=== PATIENT | male | born 1950 | race Caucasian/White ===

== ENCOUNTER 2018-09-29 00:51 | Emergency (ER) | payer OTHER, MEDICARE ==
[2018-09-29 01:04] VITALS: BP 154/84; PULSE 112; RESP 18; TEMP 98.8
--- NOTE | 2018-09-29 02:25 | XR ---
EXAM: XR Chest, 2 Views CLINICAL HISTORY: ITS.REASON XR Reason: Pain TECHNIQUE: Frontal and lateral views of the chest. COMPARISON: No relevant prior studies available. FINDINGS: Lungs: No consolidation or mass. Pleural space: No effusion. Heart: No cardiomegaly. Mediastinum: Unremarkable. Bones/joints: No acute findings. IMPRESSION: No acute cardiopulmonary process.
--- NOTE | 2018-09-29 02:26 | XR ---
EXAM: XR Left Shoulder Complete, 2 or More Views CLINICAL HISTORY: ITS.REASON XR Reason: Pain TECHNIQUE: Two or more views of the left shoulder. COMPARISON: No relevant prior studies available. FINDINGS: Bones/joints: No acute fracture. No dislocation. Moderate degenerative changes of the acromioclavicular and glenohumeral joints. Soft tissues: Unremarkable. IMPRESSION: No acute findings. Moderate osteoarthrosis.
--- NOTE | 2018-09-29 02:35 | CT ---
EXAM: CT Head Without Intravenous Contrast CLINICAL HISTORY: ITS.REASON CT Reason: Pain TECHNIQUE: Axial computed tomography images of the head/brain without intravenous contrast. CTDI is 45 mGy and DLP is 1055 mGy-cm. This CT exam was performed using one or more of the following dose reduction techniques: automated exposure control, adjustment of the mA and/or kV according to patient size, and/or use of iterative reconstruction technique. COMPARISON: No relevant prior studies available. FINDINGS: Brain: No hemorrhage, large hypodensity, or mass effect. Ventricles: No hydrocephalus. Mild cerebral volume loss. Bones/joints: Unremarkable. Soft tissues: Unremarkable. Sinuses: Unremarkable. Mastoid air cells: Clear. IMPRESSION: No acute hemorrhage, hydrocephalus, or mass effect. EXAM: CT Cervical Spine Without Intravenous Contrast CLINICAL HISTORY: ITS.REASON CT Reason: Pain TECHNIQUE: Axial computed tomography images of the cervical spine without intravenous contrast. CTDI is 13 mGy and DLP is 345 mGy-cm. This CT exam was performed using one or more of the following dose reduction techniques: automated exposure control, adjustment of the mA and/or kV according to patient size, and/or use of iterative reconstruction technique. COMPARISON: No relevant prior studies available. FINDINGS: Vertebrae: No acute fracture. Discs/spinal canal/neural foramina: Severe degenerative disc disease with large bridging anterior osteophytes from C4-C7. Mild spinal canal stenosis from C3-C7 secondary to degenerative changes. Soft tissues: Unremarkable. IMPRESSION: No acute fracture or subluxation.
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
== END 2018-09-29 03:00 | disposition home or self-care (01) ==
LOC: EC 00:51
DX: M25.512 Pain in left shoulder (principal); M25.60 Stiffness of unspecified joint, not elsewhere classified; Z87.891 Personal history of nicotine dependence; Z96.641 Presence of right artificial hip joint; V49.49XA Driver injured in collision with other motor vehicles in traffic accident, initial encounter; Y92.410 Unspecified street and highway as the place of occurrence of the external cause
CPT/HCPCS: 70450; 71046; 72125; 99284

== ENCOUNTER → 2018-10-28 | Outpatient (CLI) | payer MEDICARE, OTHER ==
--- NOTE | 2018-10-28 16:03 | US ---
EXAMINATION TYPE: US bladder DATE OF EXAM: 10/28/2018 COMPARISON: NONE CLINICAL HISTORY: R35.0 FREQ OF MICTURITION. Patient states it takes a while and a few times to empty bladder. Patient voided after initial scan. Patient unable to void second time. EXAM MEASUREMENTS: Post Void Residual Volume: 390.8 mL Color Doppler performed to assess ureteral jets. Bilateral Jets seen Normal Post Void Residual (less than 50ml): ABNORMAL IMPRESSION: Confirmation of abnormal post void residual was significant residual urine present in bl adder after voiding.
== END | disposition home or self-care (01) ==
LOC: RADUSWWP 15:25
PROVIDERS: ATTEND Family Medicine
DX: R39.198 Other difficulties with micturition (principal)
CPT/HCPCS: 76857

== ENCOUNTER 2020-05-23 12:52 | Inpatient (IN) | payer MEDICARE, OTHER ==
[2020-05-23] MEDS ORDERED: SODIUM CHLORIDE 0.9% 1,000 ML IV STA ×2 (12:59)
--- NOTE | 2020-05-23 13:02 | ED ---
Nausea/Vomiting/Diarrhea HPI - General Stated complaint: dehydration Time Seen by Provider: 05/23/20 12:52 Source: patient, EMS, RN notes reviewed Mode of arrival: EMS - History of Present Illness Initial comments: This is a 69-year-old male with history of chronic back problems who states he's had diarrhea for the last 2 weeks he was seen in his doctor's office today and found to be demonstrating evidence of dehydration. He was brought here by EMS he has been having lightheadedness when he tries get walk. He states he had decreased oral intake. No fevers chills nausea vomiting sweats his diarrhea he states he attributes that to his low back pains had similar problems before with the associated back pain and he is in the process of getting worked up for it. MD complaint: diarrhea - Related Data Allergies Allergy/AdvReac Type Severity Reaction Status Date / Time No Known Allergies Allergy Verified 05/23/20 13:02 Review of Systems ROS Statement: Those systems with pertinent positive or pertinent negative responses have been documented in the HPI. ROS Other: All systems not noted in ROS Statement are negative. Past Medical History Past Medical History: No Reported History History of Any Multi-Drug Resistant Organisms: None Reported Past Surgical History: Appendectomy, Orthopedic Surgery Additional Past Surgical History / Comment(s): right hip replacement Past Alcohol Use History: None Reported, Rare Past Drug Use History: None Reported General Exam - General Exam Comments Initial Comments: This is a well-developed well-nourished awake alert oriented 3 male General appearance: alert, in no apparent distress Head exam: Present: atraumatic, normocephalic, normal inspection Eye exam: Present: normal appearance, PERRL, EOMI. Absent: scleral icterus, conjunctival injection, periorbital swelling ENT exam: Present: mucous membranes dry Neck exam: Present: normal inspection, full ROM, other (No stridor JVD or bruits). Absent: tenderness, meningismus, lymphadenopathy Respiratory exam: Present: normal lung sounds bilaterally. Absent: respiratory distress, wheezes, rales, rhonchi, stridor Cardiovascular Exam: Present: regular rate, normal rhythm, normal heart sounds. Absent: systolic murmur, diastolic murmur, rubs, gallop, clicks GI/Abdominal exam: Present: soft, normal bowel sounds. Absent: distended, tenderness, guarding, rebound, rigid, bruit, pulsatile mass Extremities exam: Present: normal inspection, full ROM, normal capillary refill. Absent: tenderness, pedal edema, joint swelling, calf tenderness Back exam: Present: normal inspection Neurological exam: Present: alert, oriented X3, CN II-XII intact Psychiatric exam: Present: normal affect, normal mood Skin exam: Present: warm, dry, intact, normal color. Absent: rash Course Vital Signs 05/23/20 12:58 Temperature 101.7 F H Pulse Rate 102 H Respiratory 18 Rate Blood Pressure 127/79 O2 Sat by Pulse 98 Oximetry - Reevaluation(s) Reevaluation #1: 05/23/20 14:31 Patient later admitted he was having a cough for the past 2 weeks he also was found have a fever 101 upon arrival. Medical Decision Making - Medical Decision Making I did discuss findings with patient and he will be admitted for evaluation. GI will be consulted - Lab Data Result diagrams: 05/23/20 13:26 05/23/20 13:26 Lab Results 05/23/20 05/23/20 05/23/20 Range/Units 13:26 13:26 13:26 WBC 4.5 (3.8-10.6) k/uL RBC 5.29 (4.30-5.90) m/uL Hgb 17.0 (13.0-17.5) gm/dL Hct 49.0 (39.0-53.0) % MCV 92.6 (80.0-100.0) fL MCH 32.1 (25.0-35.0) pg MCHC 34.7 (31.0-37.0) g/dL RDW 12.9 (11.5-15.5) % Plt Count 168 (150-450) k/uL MPV 6.9 Neutrophils % 72 % Lymphocytes % 19 % Monocytes % 6 % Eosinophils % 0 % Basophils % 1 % Neutrophils # 3.3 (1.3-7.7) k/uL Lymphocytes # 0.9 L (1.0-4.8) k/uL Monocytes # 0.3 (0-1.0) k/uL Eosinophils # 0.0 (0-0.7) k/uL Basophils # 0.0 (0-0.2) k/uL Sodium 135 L (137-145) mmol/L Potassium 3.7 (3.5-5.1) mmol/L Chloride 99 (98-107) mmol/L Carbon Dioxide 26 (22-30) mmol/L Anion Gap 10 mmol/L BUN 23 H (9-20) mg/dL Creatinine 1.03 (0.66-1.25) mg/dL Est GFR (CKD-EPI)AfAm 85 (>60 ml/min/1.73 sqM) Est GFR (CKD-EPI)NonAf 74 (>60 ml/min/1.73 sqM) Glucose 114 H (74-99) mg/dL Plasma Lactic Acid Marlo 1.9 (0.7-2.0) mmol/L Calcium 8.5 (8.4-10.2) mg/dL Magnesium 1.7 (1.6-2.3) mg/dL Total Bilirubin 1.4 H (0.2-1.3) mg/dL AST 69 H (17-59) U/L ALT 43 (4-49) U/L Alkaline Phosphatase 57 (38-126) U/L Creatine Kinase 126 (55-170) U/L Total Protein 7.3 (6.3-8.2) g/dL Albumin 4.1 (3.5-5.0) g/dL Amylase 56 (30-110) U/L Lipase 230 (23-300) U/L - EKG Data -: EKG Interpreted by Me EKG shows normal: sinus rhythm EKG Comments: Sinus rhythm a 96 CT interval 132 QRS 88 QT since QTC 354/447 right word axis no acute ST-T wave changes - Radiology Data Radiology results: report reviewed (Imaging reviewed no acute findings.), image reviewed Disposition Clinical Impression: Diarrhea, Febrile illness, acute, Dehydration Disposition: ADMITTED IP TO THIS [facility] Condition: Fair Referrals: Shayan Beltrán DO [Primary Care Provider] - 1-2 days
[2020-05-23] MEDS ORDERED: ONDANSETRON 4 MG/2 ML VIAL IVP STA (13:28)
[2020-05-23 13:43] LABS: Basophils % (A) 1 %; Eosinophils % (A) 0 %; Lymphocytes # (A) 0.9 k/uL (1.0-4.8); Lymphocytes % (A) 19 %; MCH 32.1 pg (25.0-35.0); MCHC 34.7 g/dL (31.0-37.0); MCV 92.6 fL (80.0-100.0); Mean Platelet Volume 6.9; Monocytes # (A) 0.3 k/uL (0-1.0); Monocytes % (A) 6 %; Neutrophils # (A) 3.3 k/uL (1.3-7.7); Neutrophils % (A) 72 %; Platelet Count 168 k/uL (150-450); RBC 5.29 m/uL (4.30-5.90); RDW 12.9 % (11.5-15.5); WBC 4.5 k/uL (3.8-10.6)
[2020-05-23 13:48] LABS: Albumin 4.1 g/dL (3.5-5.0); Calcium 8.5 mg/dL (8.4-10.2); Magnesium 1.7 mg/dL (1.6-2.3); Total Bilirubin 1.4 mg/dL (0.2-1.3); Total Protein 7.3 g/dL (6.3-8.2)
[2020-05-23 14:40] LABS: Potassium 3.7 mmol/L (3.5-5.1)
--- NOTE | 2020-05-23 14:43 | XR ---
KUB HISTORY: Abdominal pain, cough and congestion Frontal KUB submitted on 2 images Bilateral hip arthroplasty change is present. Degenerative disc changes are present in the visualized spine, there are overlying artifacts. Metallic coils are present in the right hemiabdomen, there are surgical clips in the right upper quadrant. Lung bases are clear. No evident bowel obstruction or pn eumoperitoneum. Probable phleboliths within the pelvis. IMPRESSION: Nonspecific bowel gas pattern.
--- NOTE | 2020-05-23 14:44 | XR ---
EXAMINATION TYPE: XR chest 2V DATE OF EXAM: 05/23/2020 COMPARISON: Chest x-ray 09/29/2018 HISTORY: Fever and cough TECHNIQUE: Frontal and lateral views of the chest are obtained. FINDINGS: Patient is rotated. There is some pleural thickening along the left lateral chest margin si milar to prior exam. There is no pleural effusion or pneumothorax seen. The cardiac silhouette size is within normal limits. The osseous structures are remarkable for post left shoulder arthroplasty change, chronic clavicular joints show arthropathy. There are overlying leads. Thoracic spondylosis i s present.. IMPRESSION: No acute cardiopulmonary process.
[2020-05-23] MEDS ORDERED: NALOXONE 0.4 MG/ML 1 ML VIAL IV PRN (14:54)
[2020-05-23] MEDS: ACETAMINOPHEN TAB 325 MG TAB PO PRN (15:40)
[2020-05-23] MEDS ORDERED: CYCLOBENZAPRINE 10 MG TAB PO PRN (18:45)
--- NOTE | 2020-05-23 19:50 | HP ---
HISTORY AND PHYSICAL DATE OF SERVICE: 05/23/2020 HISTORY OF PRESENT ILLNESS: This 69-year-old gentleman with a past medical history of DJD, appendectomy, history of nicotine dependence, being followed by Dr. Beltrán in the outpatient setting, was not feeling well for the past 2 weeks. The patient had diarrhea on and off. The patient had some dehydration. The patient checked with the doctor's office today and the patient was directly admitted to [facility] for further evaluation and treatment. The COVID-19 test was positive. The patient was not found to be hypoxic at this time. The patient had a fever. Lab-[place], the patient had hyponatremia, possibly hypovolemic, increased bilirubin, increased AST. Influenza was negative. There is no history of any fever, rigor or chills. No history of headache, loss of consciousness, seizures. No history of contact with COVID-19 infection, either. PAST MEDICAL HISTORY: History of DJD, appendectomy. MEDICATIONS: Tylenol and Flexeril p.r.n. ALLERGIES: NONE. FAMILY HISTORY: No history of heart disease or strokes in the family. SOCIAL HISTORY: Previous history of smoking. Occasional alcohol intake. REVIEW OF SYSTEMS: ENT: No diminished hearing. No diminished vision. CARDIOVASCULAR SYSTEM: No angina, palpitations. RESPIRATORY SYSTEM: No cough, hemoptysis. GI: As mentioned earlier. : No dysuria or retention. NERVOUS SYSTEM: No numbness, weakness. ALLERGY/IMMUNOLOGY: No asthma, hayfever. MUSCULOSKELETAL: As mentioned earlier. HEMATOLOGY/ONCOLOGY: No history of anemia. ENDOCRINE: No history of diabetes, hypothyroidism. CONSTITUTIONAL: As mentioned earlier. DERMATOLOGY: Negative. RHEUMATOLOGY: Negative. PSYCHIATRY: As mentioned earlier. PHYSICAL EXAMINATION: Patient alert and oriented x3. Pulse is 102. Blood pressure is 127/70, respiration 18, temperature 101.7. Pulse ox 98% on room air. HEENT: Conjunctivae normal. NECK: No jugular venous distention. CARDIOVASCULAR SYSTEM: S1, S2 muffled. RESPIRATORY SYSTEM: Breath sounds diminished at the bases. No rhonchi. No crackles. ABDOMEN: Soft, non-tender. No mass palpable. LEGS: No edema. No swelling. NERVOUS SYSTEM: Higher functions as mentioned earlier. Moves all 4 limbs. No focal motor or sensory deficit. LYMPHATICS: No lymph node palpable in neck, axillae or groin. SKIN: No ulcer, rash, bleeding. JOINTS: No active deforming arthropathy. LABS: CBC within normal limits. Sodium 135, BUN is 23, creatinine is 1.03, glucose 114, total bilirubin is 1.4, AST 69. COVID-19 is positive. ASSESSMENT: 1. Severe diarrhea with dehydration with acute COVID-19 infection. 2. Hyponatremia. 3. Increased bilirubin. 4. Increased AST. 5. History of degenerative joint disease. 6. History of appendectomy. 7. History of right hip replacement. 8. Remote history of nicotine dependence. 9. FULL CODE. RECOMMENDATIONS AND DISCUSSION: In this 69-year-old gentleman who presented with multiple complex medical issues, we will monitor the patient closely, continue the current medication, continue with symptomatic treatment. Otherwise, I would recommend continuing the IV fluids. I would also recommend resuming the home medications. Evaluate for the activity of COVID-[address] Hartman has been consulted from Gastroenterology. Guarded prognosis. Further recommendations to follow. Chest x-ray, which I reviewed personally, showed no significant evidence of abnormalities, but we will proceed to obtain a CT scan of the chest. A copy of this dictation is being forwarded to Dr. Beltrán, who is the primary physician. MMODL / IJN: [id number] /
[2020-05-23] MEDS: SODIUM CHLORIDE 0.9% 1,000 ML IV SCH (22:24)
[2020-05-24] MEDS: ACETAMINOPHEN TAB 325 MG TAB PO PRN ×2 (08:31→15:32)
[2020-05-24] MEDS: PANTOPRAZOLE 40 MG/10 ML VIAL IV SCH (08:32)
[2020-05-24] MEDS: SODIUM CHLORIDE 0.9% 1,000 ML IV SCH ×2 (08:34→22:15)
[2020-05-24 10:51] LABS: Basophils # (A) 0.01 X 10*3/uL (0.00-0.10); Basophils % (A) 0.2 %; Eosinophils # (A) 0 X 10*3/uL (0.04-0.35); Eosinophils % (A) 0 %; HCT 46.7 % (39.6-50.0); HGB 15.9 g/dL (13.0-17.0); Lymphocytes # (A) 0.78 X 10*3/uL (0.90-5.00); Lymphocytes % (A) 13.9 %; MCH 32.1 pg (27.0-32.0); MCV 94.3 fL (80.0-97.0); Mean Platelet Volume 10.3 fL (9.5-12.2); Monocytes # (A) 0.28 X 10*3/uL (0.20-1.00); Neutrophils # (A) 4.52 X 10*3/uL (1.80-7.70); Neutrophils % (A) 80.2 %; Platelet Count 165 X 10*3/uL (140-440); RBC 4.95 X 10*6/uL (4.40-5.60); RDW 12.8 % (11.5-14.5); WBC 5.63 X 10*3/uL (4.50-10.00)
[2020-05-24 11:23] LABS: Color,Urine Yellow
[2020-05-24 11:24] LABS: Appearance,Urine Slightly Cloudy (Clear); Bilirubin,Urine Negative (Negative); Blood,Urine Small (Negative); Glucose,Urine (UA) Negative (Negative); Ketones,Urine Trace (Negative); Protein,Urine 2+ (Negative); Specific Gravity,Urine 1.026 (1.001-1.035)
[2020-05-24 11:25] LABS: Leukocyte Esterase,Urine Negative (Negative); Nitrite,Urine Negative (Negative); Urobilinogen,Urine <2.0 mg/dL (<2.0)
[2020-05-24 11:27] LABS: Mucus,Urine Few /hpf
[2020-05-24 11:28] LABS: Bacteria,Urine Rare /hpf; RBC,Urine 1 /hpf (0-5); WBC,Urine 1 /hpf (0-5)
[2020-05-24 12:18] LABS: African American GFR (CKD) 99.9 (60.0-200.0); Albumin 4.1 g/dL (3.80-4.90); Albumin/Globulin Ratio 1.86 (1.60-3.17); Anion Gap 11.5 mmol/L (4.00-12.00); BUN/Creat Ratio 23.33 Ratio (12.00-20.00); Calcium 8.8 mg/dL (8.7-10.3); Carbon Dioxide 23.5 mmol/L (21.6-31.8); Globulin 2.2 g/dL (1.6-3.3); Non-African American GFR(CKD) 86.2 (60.0-200.0); Potassium 3.8 mmol/L (3.5-5.5); Total Bilirubin 1.4 mg/dL (0.3-1.2); Total Protein 6.3 g/dL (6.2-8.2)
--- NOTE | 2020-05-24 13:24 | CT ---
EXAMINATION TYPE: CT angio chest DATE OF EXAM: 05/24/2020 COMPARISON: Radiograph same date HISTORY: 69-year-old male shortness of breath, Difficulty breathing, positive COVID TECHNIQUE: Contiguous axial scanning of the chest performed with IV Contrast, patient injected with 1 00 mL of Isovue 370. Coronal/sagittal MIP reconstructions performed. CT DLP: 320.5 mGycm Automated exposure control for dose reduction was used. FINDINGS: Partially visualized. Reverse left shoulder arthroplasty. Heart normal size without pericardial effusion. No flattening of the interventricular septum reflux o f contrast into the hepatic veins. Aortic root is ectatic at 3.8 cm. Ascending aorta ectatic and 2.7 cm. Conventional arch vessel branch ing anatomy. Ectatic upper descending thoracic aorta at 3.2 cm. Numerous nonenlarged and borderline sized mediastinal lymph nodes measuring up to 1 cm in the paratra cheal region. While there is satisfactory opacification of the pulmonary artery system, there is breathing motion a rtifact which limits evaluation. No definite pulmonary embolus. Prominent dependent subpleural opacity. Multifocal peripheral groundglass changes especially in the m id and lower lungs. Visualized upper abdomen shows a tiny hiatal hernia and severe hepatic steatosis with prior cholecyst ectomy. Bones: DISH within the mid to lower thoracic spine. IMPRESSION: 1. BILATERAL PERIPHERAL GROUNDGLASS INFILTRATES IN KEEPING WITH COVID PNEUMONIA. 2. NO EVIDENCE FOR PULMONARY EMBOLUS. 3. NONENLARGED AND BORDERLINE SIZED MEDIASTINAL LYMPHADENOPATHY MEASURING UP TO 1 CM LIKELY REACTIVE. 4. HEPATIC STEATOSIS AND TINY HIATAL HERNIA.
[2020-05-24] MEDS ORDERED: LOPERAMIDE 2 MG CAP PO PRN (14:14)
[2020-05-24] MEDS: ENOXAPARIN 40 MG/0.4 ML SYRINGE SQ SCH (14:17)
[2020-05-24] MEDS: ZINC SULFATE 220 MG CAP PO SCH (14:18)
[2020-05-24] MEDS: CHOLECALCIFEROL 25 MCG (1000 IU) TABLET PO SCH (14:18)
[2020-05-24] MEDS: ASCORBIC ACID 500 MG TAB PO SCH (14:18)
[2020-05-24] MEDS: dexAMETHasone 2 MG TAB PO SCH (14:18)
--- NOTE | 2020-05-24 16:40 | CONS ---
CONSULTATION DATE OF CONSULTATION: 05/24/2020 REASON FOR CONSULTATION: Diarrhea of 2 weeks duration. HISTORY OF PRESENT ILLNESS: The patient is a 69-year-old pleasant white male who came to the emergency room complaining of diarrhea for the last 2 weeks duration. The patient states that he has been having several liquid bowel movements daily and has had to wear diapers. He thinks he is having about 5 or 10 bowel movements daily and occasionally nocturnal also. Denies any associated abdominal pain. No nausea, no vomiting. No rectal bleeding or melena. He came to the emergency room at [facility] and was positive for COVID-19 infection. He denies any shortness of breath, cough, fever, chills. He recalls having a colonoscopy at [facility] in March of 2020 and was told that he has 9 polyps and was recommended to have a repeat colonoscopy in a year. He denies any recent travel. No recent antibiotic use. No new medications that were started recently. PAST MEDICAL HISTORY: Degenerative joint disease. PAST SURGICAL HISTORY: Appendectomy, colonoscopy in March of 2020 at [facility]. MEDICATIONS: Medications at home Tylenol and Flexeril p.r.n. ALLERGIES: None. SOCIAL HISTORY: No smoking. No alcohol use. FAMILY HISTORY: Unremarkable. REVIEW OF SYSTEMS: CARDIOPULMONARY: He denies any chest pain or shortness of breath. : No dysuria or hematuria. MUSCULOSKELETAL: Mild degenerative joint disease. SKIN: Unremarkable. ENDOCRINE: Unremarkable. PSYCHIATRIC: Unremarkable. NEUROLOGY: Unremarkable. ENT/VISION: Unremarkable. CONSTITUTIONAL: No recent weight loss. No fever, chills, night sweats. HEMATOLOGY: Unremarkable. GI: As mentioned above, diarrhea of 2 weeks duration. PHYSICAL EXAMINATION: He appears comfortable. No apparent distress. VITAL SIGNS: Stable. Blood pressure is 135/75, pulse 86. Temperature 98. T-max was 100.7, today 98.5. HEENT: Examination unremarkable. Conjunctivae are pink. Sclerae anicteric. Oral cavity no lesions. NECK: No JVD. No lymph node enlargement. CHEST: Clear to auscultation. HEART: Regular rate and rhythm. ABDOMEN: Soft. Bowel sounds are positive. It was nondistended, nontender. EXTREMITIES: No pedal edema. NEURO: He is alert and oriented x3. No focal deficits. LABS: WBC 4.5, hemoglobin 17, platelets normal. Basic metabolic panel is within normal limits. BUN is 23, creatinine 1.03. T-bilirubin 1.4, AST 69, ALT 43, LDH is 821, CRP is 30. Lipase and amylase are normal. Coronavirus PCR is positive. C diff is negative. Influenza A and B are negative. IMPRESSION: 1. Acute onset of diarrhea for the last 2 weeks duration most likely infectious in etiology. Patient also was diagnosed with COVID-19. The patient was also noted to have positive coronavirus PCR and possibility of COVID-19 infection causing the diarrhea needs to be considered. Other infectious etiologies also need to be considered. According to the patient, he had a colonoscopy done in the early part of this year at the [facility] and was unremarkable. So far stool studies for C difficile toxin have been negative. 2. COVID-19 infection. No upper respiratory symptoms. 3. Mild elevation of serum transaminases and bilirubin. RECOMMENDATIONS: 1. Obtain stool cultures, ova and parasites. 2. Start him on a clear liquid diet and advance as tolerated. 3. If the stool cultures are negative, we can start him on antimotility agents. 4. Continue with symptomatic and supportive care. 5. Advance diet as tolerated based on the symptoms. 6. No plans on any endoscopic intervention at the present time. 7. Will follow with you closely. Thank you for this consultation. VENKAT / SHOSHANAN: [id number] /
--- NOTE | 2020-05-24 17:44 | PN ---
PROGRESS NOTE DATE OF SERVICE: 05/24/2020 This 69-year-old gentleman who was admitted with acute severe diarrhea, also had acute COVID-19 infection. The patient had elevated D-dimer and a CT angio of the chest was done which was reviewed personally by me and showed no evidence of pulmonary embolism, but however, refresh shadows consistent with acute COVID-19 pneumonia is noted. The patient is admitted for evaluation and treatment. C difficile has been requested. PAST MEDICAL HISTORY: Reviewed. REVIEW OF SYSTEMS: CARDIOVASCULAR SYSTEM: No angina. RESPIRATORY SYSTEM: As mentioned earlier. GI: As mentioned earlier. : No dysuria. NERVOUS SYSTEM: No numbness, weakness. CURRENT MEDICATIONS: Medications are reviewed and include: Tylenol, vitamin C, vitamin D3, Hexadrol, Lovenox, Imodium, Protonix and zinc. PHYSICAL EXAM: Patient is alert, oriented x3. The pulse is 86, blood pressure 130/70, respirations 18, temperature 98.4, pulse ox 94% on room air. HEENT: Conjunctivae normal. NECK: No JVD. CARDIOVASCULAR: S1, S2 muffled. RESPIRATORY SYSTEM: Breath sounds diminished at the bases. A few scattered rhonchi. ABDOMEN: Soft, nontender. NERVOUS SYSTEM: No focal deficits. LABS: WBC 5.6, hemoglobin 15.9. Total bilirubin is 1.4, AST is 79, ALT is 59, LDH, CRP and procalcitonin noted. C diff is negative. ASSESSMENT: 1. Severe diarrhea and dehydration with acute COVID-19 infection. 2. Acute bilateral patchy pneumonia, interstitial pneumonia secondary to acute COVID- 19 infection. 3. Hyponatremia. 4. Increased bilirubin. 5. Increased AST. 6. History of degenerative joint disease. 7. History of appendectomy. 8. History of right hip replacement. 9. Remote history of nicotine dependence. 10.FULL CODE. RECOMMENDATIONS AND DISCUSSION: Continue current medications, monitoring and symptomatic treatment. Otherwise, at this time, I would recommend continue the Lovenox and rest of the medications. I would also recommend infectious disease evaluation by Dr. Monk. Otherwise, prognosis guarded because of multiple complex medical issues. See orders. Symptomatic treatment with Imodium may be considered if there is continued debilitating diarrhea. MMODL / IJN: [id number] /
--- NOTE | 2020-05-25 00:10 | CONS ---
CONSULTATION DATE OF SERVICE: 05/24/2020 REASON FOR CONSULTATION: COVID-19 infection. HISTORY OF PRESENT ILLNESS: The patient is a 69-year-old male presenting to the ER yesterday afternoon for evaluation of diarrhea that has been going on for about 2 weeks. The patient did have multiple loose stools. Denies any blood or mucous in the stool. Denies any abdominal pain. He did have some nausea but no vomiting. The patient denies having any headache or URI symptoms except some sore throat. Denies having any chest pain or shortness of breath. He did have minimal cough which is dry with occasional whitish sputum. With these symptoms, the patient has been evaluated in the outpatient setting by the PCP and was advised to go to the hospital for possible dehydration. On presentation to the hospital, the patient did have a fever of 101.7 degrees Fahrenheit. The patient is currently saturating 96-95 percent on room air. The patient did have a normal white count with lymphopenia. D-dimer was elevated 0.74. Kidney function was normal and AST mildly elevated. Procalcitonin 0.12. CRP of 30. Urine was negative. The patient did have a positive Covid test. Stool for C difficile was negative. Influenza PCR was negative. Stool cultures and blood culture so far pending. The patient did have a chest x-ray that was negative for acute cardiopulmonary disease. CT angiogram did show bilateral peripheral ground-glass infiltrate in keeping with Covid pneumonia, no evidence of PE. The patient has been admitted to the hospital. Infectious Disease was consulted today for further management regarding his Covid infection. REVIEW OF SYSTEMS: Positive points have been mentioned in HPI. Rest of systems are negative. PAST MEDICAL HISTORY: Osteoarthritis. PAST SURGICAL HISTORY: Appendectomy, right hip replacement. SOCIAL HISTORY: Denies smoking, drinking or drug use. FAMILY HISTORY: No pertinent findings noticed. ALLERGIES: No known drug allergies. MEDICATIONS: The patient is currently on Tylenol, vitamin C, vitamin D3, Flexeril, dexamethasone, Lovenox, Imodium, Narcan Protonix, IV fluid, zinc sulfate. PHYSICAL EXAMINATION: Blood pressure 140/78 with a pulse of 80, temperature 98.9. He is 95% on room air. General description is an elderly male lying in bed in no distress. HEENT: Examination shows no pallor or scleral icterus. Oral mucous membranes dry. NECK: Trachea central. No thyromegaly. LUNGS: Unlabored breathing, clear to auscultation anteriorly. No wheeze or crackles. HEART S1, S2. Regular rate. ABDOMEN: Soft, no tenderness. No guarding. No rigidity. EXTREMITIES are no edema of the feet. SKIN examination: No rash or mass palpable. NEUROLOGICAL: Patient is awake, alert and oriented times two. Mood and affect normal. LABS: Hemoglobin is 15.1, white count of 5.63, BUN of 21, creatinine 0.92. Electrolytes have been normal. Liver enzymes mildly elevated. CRP mildly elevated. Urine was negative. DIAGNOSTIC IMPRESSION AND PLAN: Patient admitted to the hospital predominantly with GI symptoms of diarrhea that has been going on for 2 weeks in this patient who also have a positive Covid test with evidence of peripheral patch infiltrate on a CT angiogram. Chest x-ray was negative, likely related to his underlying COVID-19 infection. With the fact that his symptoms have been going on for 2 weeks and the patient is currently not hypoxic, would not qualify for Remdesivir therapy. PLAN: 1. Patient is currently being treated with dexamethasone, Lovenox, zinc, ascorbic acid, to continue along with symptomatic treatment for his diarrhea. 2. IV fluids gently. 3. Droplet isolation, respiratory support. 4. We will follow on his clinical condition and further adjust medication if needed. Thank you for this consultation. We will follow this patient along with you. VENKAT / SHOSHANAN: [id number] /
[2020-05-25] MEDS: ACETAMINOPHEN TAB 325 MG TAB PO PRN ×2 (01:51→20:46)
[2020-05-25 06:27] LABS: ALT 55 U/L (4-49); AST 75 U/L (17-59); African American GFR (CKD) >90 (>60 ml/min/1.73 sqM); Albumin 3.1 g/dL (3.5-5.0); Albumin/Globulin Ratio 1.1; Alkaline Phosphatase 44 U/L (38-126); Anion Gap 8 mmol/L; Blood Urea Nitrogen 19 mg/dL (9-20); Calcium 8.4 mg/dL (8.4-10.2); Carbon Dioxide 24 mmol/L (22-30); Chloride 104 mmol/L (98-107); Globulin 2.9 g/dL; Glucose 108 mg/dL (74-99); Non-African American GFR(CKD) >90 (>60 ml/min/1.73 sqM); Potassium 3.9 mmol/L (3.5-5.1); Sodium 136 mmol/L (137-145); Total Bilirubin 1.3 mg/dL (0.2-1.3)
[2020-05-25 07:33] LABS: Ferritin 1667.5 ng/mL (22.0-322.0)
[2020-05-25 08:54] LABS: Basophils # (A) 0 X 10*3/uL (0.00-0.10); Basophils % (A) 0 %; Eosinophils # (A) 0 X 10*3/uL (0.04-0.35); Eosinophils % (A) 0 %; HCT 43.3 % (39.6-50.0); HGB 14.9 g/dL (13.0-17.0); Lymphocytes # (A) 0.69 X 10*3/uL (0.90-5.00); Lymphocytes % (A) 10.2 %; MCH 31.7 pg (27.0-32.0); MCHC 34.4 g/dL (32.0-37.0); MCV 92.1 fL (80.0-97.0); Mean Platelet Volume 10.3 fL (9.5-12.2); Monocytes # (A) 0.22 X 10*3/uL (0.20-1.00); Monocytes % (A) 3.2 %; Neutrophils # (A) 5.84 X 10*3/uL (1.80-7.70); Neutrophils % (A) 86.3 %; Platelet Count 170 X 10*3/uL (140-440); RDW 12.8 % (11.5-14.5); WBC 6.77 X 10*3/uL (4.50-10.00)
--- NOTE | 2020-05-25 09:49 | P.PN ---
Subjective Progress Note Date: 05/25/20 Principal diagnosis: Diarrhea, Covid 19 infection This 69-year-old male who presented to the emergency department with diarrhea and weakness. Patient states he had diarrhea for the last 2 weeks duration, without any evidence of GI bleed. He denies abdominal pain, nausea, or vo miting. He was diagnosed with Covid 19 infection. He states he's had no further diarrhea this morning. Denies any abdominal pain, nausea, or vomiting. States he has no signs of GI bleed. Objective - Vital Signs Vital signs: Vital Signs Temp 97.9 F 05/25/20 07:00 Pulse 81 05/25/20 07:54 Resp 18 05/25/20 07:54 BP 141/75 05/25/20 07:00 Pulse Ox 96 05/25/20 07:00 Intake & Output 05/24/20 05/25/20 05/25/20 18:59 06:59 18:59 Intake Total 600 400 Balance 600 400 Intake: Intake, IV Titration 600 Amount Sodium Chloride 0.9% 1, 600 000 ml @ 75 mls/hr IV . [id number] [facility] Rx#:[id number] Oral 400 Other: Voiding Method Incontinent Incontinent # Voids 0 0 - Exam General appearance: The patient is alert, oriented, appears in no acute distress. HET: Head is normocephalic and atraumatic. Conjunctiva pink. Sclera anicteric. Neck: Supple without lymphadenopathy. Abdomen: Soft, nontender, nondistended with bowel sounds. No guarding or rigidity. Extremities: Normal skin color and turgor. No pedal edema Skin: No rashes, no jaundice Neurological: No focal deficits. Alert and oriented 3. - Labs CBC & Chem 7: 05/25/20 05:37 05/25/20 05:37 Labs: Abnormal Lab Results - Last 24 Hours (Table) 05/23/20 05/23/20 05/24/20 Range/Units 10:30 19:33 06:37 MCH 32.1 H (27.0-32.0) pg Lymphocytes # 0.78 L (0.90-5.00) X 10*3/uL Eosinophils # 0 L (0.04-0.35) X 10*3/uL Sodium (137-145) mmol/L BUN/Creatinine Ratio (12.00-20.00) Ratio Glucose (74-99) mg/dL Ferritin 1667.5 H (22.0-322.0) ng/mL Total Bilirubin (0.3-1.2) mg/dL AST (14-35) U/L ALT (10-49) U/L Total Protein (6.3-8.2) g/dL Albumin (3.5-5.0) g/dL Urine Protein 2+ H (Negative) Urine Ketones Trace H (Negative) Urine Bacteria Rare H (None) /hpf Urine Mucus Few H (None) /hpf 05/24/20 05/25/20 05/25/20 Range/Units 06:37 05:37 05:37 MCH (27.0-32.0) pg Lymphocytes # 0.69 L (0.90-5.00) X 10*3/uL Eosinophils # 0 L (0.04-0.35) X 10*3/uL Sodium 136 L (137-145) mmol/L BUN/Creatinine Ratio 23.33 H (12.00-20.00) Ratio Glucose 108 H (74-99) mg/dL Ferritin (22.0-322.0) ng/mL Total Bilirubin 1.4 H (0.3-1.2) mg/dL AST 79 H 75 H (14-35) U/L ALT 57 H 55 H (10-49) U/L Total Protein 6.0 L (6.3-8.2) g/dL Albumin 3.1 L (3.5-5.0) g/dL Urine Protein (Negative) Urine Ketones (Negative) Urine Bacteria (None) /hpf Urine Mucus (None) /hpf Microbiology - Last 24 Hours (Table) 05/24/20 10:30 Stool Culture - Preliminary Stool 05/23/20 14:42 Blood Culture - Preliminary Blood No Growth after 24 hours 05/23/20 13:28 Blood Culture - Preliminary Blood No Growth after 24 hours Assessment and Plan (1) Diarrhea Narrative/Plan: Acute onset of diarrhea for the last 2 weeks duration most likely infectious in etiology. Patient also was diagnosed with Covid 19. The patient was also noted to have positive Mckinnon virus PCR and possibility of Covid 19 infection causing the diarrhea needs to be considered. Other infectious etiology also needs to be considered. According to the patient he had a colonoscopy done in 2019 at the [facility] and was unremarkable. So far stool studies for C. difficile toxin have been negative. Current Visit: Yes Status: Acute Code(s): R19.7 - DIARRHEA, UNSPECIFIED SNOMED Code(s): 73655020 (2) COVID-19 virus infection Current Visit: Yes Status: Acute Code(s): U07.1 - COVID-19 SNOMED Code(s): 232798883 Plan: 1. Supportive care 2. C. diff and stool cultures ordered 3. Imodium as needed 4. Consider Questran if diarrhea continues 5. Full liquid diet, advance as tolerated 6. Thank you for this consultation. We will continue to follow Dr. Montenegro I agree with the dictator's note, documented as a scribe by Georgette Pickett.
[2020-05-25] MEDS: ASCORBIC ACID 500 MG TAB PO SCH (10:32)
[2020-05-25] MEDS: ENOXAPARIN 40 MG/0.4 ML SYRINGE SQ SCH (10:32)
[2020-05-25] MEDS: CHOLECALCIFEROL 25 MCG (1000 IU) TABLET PO SCH (10:32)
[2020-05-25] MEDS: PANTOPRAZOLE 40 MG/10 ML VIAL IV SCH (10:32)
[2020-05-25] MEDS: dexAMETHasone 2 MG TAB PO SCH (10:32)
[2020-05-25] MEDS: ZINC SULFATE 220 MG CAP PO SCH (10:32)
[2020-05-25] MEDS: SODIUM CHLORIDE 0.9% 1,000 ML IV SCH (10:33)
[2020-05-25] MEDS: PSYLLIUM HUSK 100% 6 GM PACKET PO SCH ×2 (11:46→20:34)
--- NOTE | 2020-05-25 14:52 | PN ---
PROGRESS NOTE DATE OF SERVICE: 05/25/2020 REASON FOR FOLLOWUP: COVID-19 infection. INTERVAL HISTORY: The patient is currently afebrile. Patient is breathing comfortably on room air. He did have minimal cough. No sputum production. No chest pain. No abdominal pain and his diarrhea has slowed down. PHYSICAL EXAMINATION: Blood pressure 141/75, pulse 81, temperature 97.9. He is 96% on room air. General description is an elderly male lying in bed in no distress. RESPIRATORY SYSTEM: Unlabored breathing, clear to auscultation anteriorly. HEART: S1, S2. Regular rate and rhythm. ABDOMEN: Soft, no tenderness. EXTREMITIES: No edema of the feet. LABS: Hemoglobin is 14.9, white count 6.77, BUN of 19, creatinine 0.74. DIAGNOSTIC IMPRESSION AND PLAN: Patient with acute COVID-19 infection in this patient who did have predominantly gastrointestinal symptoms. Respiratory status is stable and gastrointestinal symptoms are improving. The patient is currently on Lovenox, dexamethasone, zinc. IV fluids to continue. Will monitor clinical course closely. MMODL / IJN: [id number] /
--- NOTE | 2020-05-25 23:58 | P.PN ---
Progress Note - Text Progress Note Date: 05/25/20 Presenting complaint: Diarrhea History of presenting complaint: Patient presented with 2 weeks duration of diarrhea. Diagnosed with COVID 19. Last colonoscopy was in 2019 at the [facility] that was unremarkable. C. diff is ruled out. Today-laying in bed. No further diarrhea. No abdominal pain. No fever no chills. Tolerated liquid diet. Breathing is stable. Review of systems: Was done for constitutional, cardiovascular, GI, pulmonary. relevant finding as above Active Medications Acetaminophen (Acetaminophen Tab 325 Mg Tab) 650 mg PO Q6HR PRN PRN Reason: Mild Pain or Fever > 100.5 Last Admin: 05/25/20 20:46 Dose: 650 mg Documented by: Ascorbic Acid (Ascorbic Acid 500 Mg Tab) 500 mg PO DAILY [facility] Last Admin: 05/25/20 10:32 Dose: 500 mg Documented by: Cholecalciferol (Cholecalciferol 25 Mcg (1000 Iu) Tablet) 25 mcg PO DAILY [facility] Last Admin: 05/25/20 10:32 Dose: 25 mcg Documented by: Cyclobenzaprine HCl (Cyclobenzaprine 10 Mg Tab) 10 mg PO BID PRN PRN Reason: back pain Dexamethasone (Dexamethasone 2 Mg Tab) 6 mg PO DAILY [facility] Last Admin: 05/25/20 10:32 Dose: 6 mg Documented by: Enoxaparin Sodium (Enoxaparin 40 Mg/0.4 Ml Syringe) 40 mg SQ DAILY [facility] Last Admin: 05/25/20 10:32 Dose: 40 mg Documented by: Sodium Chloride (Saline 0.9%) 1,000 mls @ 75 mls/hr IV .[id number] [facility] Last Admin: 05/25/20 10:33 Dose: 75 mls/hr Documented by: Loperamide HCl (Loperamide 2 Mg Cap) 2 mg PO QID PRN PRN Reason: Diarrhea Naloxone HCl (Naloxone 0.4 Mg/Ml 1 Ml Vial) 0.2 mg IV Q2M PRN PRN Reason: Opioid Reversal Psyllium Hydrophilic Mucilloid (Psyllium Husk 100% 6 Gm Packet) 6 gm PO BID [facility] Last Admin: 05/25/20 20:34 Dose: 6 gm Documented by: Zinc Sulfate (Zinc Sulfate 220 Mg Cap) 220 mg PO DAILY [facility] Last Admin: 05/25/20 10:32 Dose: 220 mg Documented by: On examination: VITAL SIGNS: 98.3, 81, 18, 141 with 75, 96% room air GENERAL APPEARANCE: Laying in bed, awake, not in distress Psychiatry: AO 3, mood and affect normal Neurological: Cranial nerves grossly intact. Moving all 4 limbs. Rest of the physical exam as per GI and ID. INVESTIGATIONS, reviewed in the clinical context: WBC 6.7 hemoglobin 14.9 platelets 170 lymphocytes 0.69 potassium 3.9 creatinine 0.74 Previous testing: C. diff negative Influenza type A, type B both not detected Chest CTA-bilateral peripheral groundglass infiltrates. Hepatic steatosis. Negative for PE Assessment and plan: -Bilateral COVID 19 pneumonia. Patient's pulse ox on room air 96%. Patient is on Decadron, subcu Lovenox vitamin C vitamin D. ID on the case -Acute diarrhea secondary to Coronavirus. Improving. Diet to be advanced. Been followed by GI -Nonalcoholic hepatic steatosis -Mild hepatitis likely secondary to nonalcoholic fatty liver disease -Hypoalbuminemia with albumin of 3.1 likely reactive Care was discussed with the patient. Diet to be advanced. Follow with consultants. Patient to sit up in a chair.
[2020-05-26 01:41] VITALS: RESP 16
[2020-05-26] MEDS: SODIUM CHLORIDE 0.9% 1,000 ML IV SCH (04:58)
[2020-05-26 08:05] LABS: ALT 44 U/L (4-49); AST 72 U/L (17-59); African American GFR (CKD) >90 (>60 ml/min/1.73 sqM); Albumin 3.1 g/dL (3.5-5.0); Albumin/Globulin Ratio 1.1; Alkaline Phosphatase 37 U/L (38-126); Anion Gap 10 mmol/L; Blood Urea Nitrogen 22 mg/dL (9-20); Calcium 8.3 mg/dL (8.4-10.2); Carbon Dioxide 22 mmol/L (22-30); Chloride 104 mmol/L (98-107); Globulin 2.9 g/dL; Glucose 84 mg/dL (74-99); Non-African American GFR(CKD) >90 (>60 ml/min/1.73 sqM); Sodium 136 mmol/L (137-145); Total Bilirubin 1.3 mg/dL (0.2-1.3)
[2020-05-26 08:08] LABS: Potassium 4.2 mmol/L (3.5-5.1)
[2020-05-26] MEDS: dexAMETHasone 2 MG TAB PO SCH (09:29)
[2020-05-26] MEDS: ZINC SULFATE 220 MG CAP PO SCH (09:29)
[2020-05-26] MEDS: ASCORBIC ACID 500 MG TAB PO SCH (09:29)
[2020-05-26] MEDS: ENOXAPARIN 40 MG/0.4 ML SYRINGE SQ SCH (09:29)
[2020-05-26] MEDS: CHOLECALCIFEROL 25 MCG (1000 IU) TABLET PO SCH (09:29)
[2020-05-26] MEDS: PSYLLIUM HUSK 100% 6 GM PACKET PO SCH (09:30)
[2020-05-26 11:27] VITALS: BP 126/55; PULSE 94; TEMP 98.2
[2020-05-26 12:39] LABS: Basophils # (A) 0.01 X 10*3/uL (0.00-0.10); Basophils % (A) 0.1 %; Eosinophils # (A) 0 X 10*3/uL (0.04-0.35); Eosinophils % (A) 0 %; HGB 14.4 g/dL (13.0-17.0); Lymphocytes # (A) 0.83 X 10*3/uL (0.90-5.00); Lymphocytes % (A) 9.7 %; MCH 31.6 pg (27.0-32.0); MCHC 33.5 g/dL (32.0-37.0); MCV 94.3 fL (80.0-97.0); Mean Platelet Volume 10.7 fL (9.5-12.2); Monocytes # (A) 0.16 X 10*3/uL (0.20-1.00); Monocytes % (A) 1.9 %; Neutrophils # (A) 7.52 X 10*3/uL (1.80-7.70); Neutrophils % (A) 87.6 %; Platelet Count 179 X 10*3/uL (140-440); RBC 4.56 X 10*6/uL (4.40-5.60); RDW 13.1 % (11.5-14.5); WBC 8.58 X 10*3/uL (4.50-10.00)
--- NOTE | 2020-05-26 23:16 | P.DS ---
Providers Date of admission: 05/24/20 10:23 Expected date of discharge: 05/26/20 Attending physician: Chip Wade Consults: 05/23/20 14:55 Consult Physician Routine Consulting Provider: Rachel Hartman Consult Reason/Comments: Diarrhea Do you want consulting provider notified?: Yes 05/24/20 13:18 Consult Physician Routine Consulting Provider: Cristel Monk Consult Reason/Comments: covid Do you want consulting provider notified?: Yes Primary care physician: [facility] Course: Presenting complaint: Diarrhea History of presenting complaint: Patient presented with 2 weeks duration of diarrhea. Diagnosed with COVID 19. Last colonoscopy was in 2019 at the [facility] that was unremarkable. C. diff is ruled out. Today-feeling well. No diarrhea. Oral intake fair. No respiratory symptoms. Care was discussed with the patient. Being discharge. Consultation: Dr. Dennis from ID Dr. Jo from GI On examination: VITAL SIGNS: 98.2, 94, 18, 1 26 x 55, 100% room air GENERAL APPEARANCE: Laying in bed, awake, not in distress Psychiatry: AO 3, mood and affect normal Neurological: Cranial nerves grossly intact. Moving all 4 limbs. Rest of the physical exam as per GI and ID. INVESTIGATIONS, reviewed in the clinical context: April 28: White count 8.58 lymphocytes 0.83 d-dimer 1.11 CRP 73.6 WBC 6.7 hemoglobin 14.9 platelets 170 lymphocytes 0.69 potassium 3.9 creatinine 0.74 Previous testing: C. diff negative Influenza type A, type B both not detected Chest CTA-bilateral peripheral groundglass infiltrates. Hepatic steatosis. Negative for PE Assessment and plan: -Bilateral COVID 19 pneumonia. Patient's pulse ox on room air 96%. Patient is on Decadron, subcu Lovenox vitamin C vitamin D. Will be sent home on xarelto for DVT prophylaxis. -Acute diarrhea secondary to Coronavirus. Diet advanced. -Nonalcoholic hepatic steatosis -Mild hepatitis likely secondary to nonalcoholic fatty liver disease -Hypoalbuminemia with albumin of 3.1 likely reactive Disposition: Home Plan - Discharge Summary Discharge Rx Participant: Yes New Discharge Prescriptions: New dexAMETHasone [Hexadrol] 6 mg PO DAILY #20 tab Loperamide [Imodium] 2 mg PO QID PRN #30 cap PRN Reason: Diarrhea Zinc Sulfate [Orazinc] 220 mg PO DAILY #30 cap Ascorbic Acid [Vitamin C] 500 mg PO DAILY #30 tab Cholecalciferol [Vitamin D3 (25 Mcg = 1000 Iu)] 25 mcg PO DAILY #30 tablet Rivaroxaban [Xarelto] 2.5 mg PO DAILY #28 tab Continue Cyclobenzaprine [Flexeril] 10 mg PO BID PRN PRN Reason: back pain Acetaminophen Tab [Tylenol] 500 mg PO Q4-6H PRN PRN Reason: Pain Discharge Medication List Acetaminophen Tab [Tylenol] 500 mg PO Q4-6H PRN 05/23/20 [History] Cyclobenzaprine [Flexeril] 10 mg PO BID PRN 05/23/20 [History] Ascorbic Acid [Vitamin C] 500 mg PO DAILY #30 tab 05/26/20 [Rx] Cholecalciferol [Vitamin D3 (25 Mcg = 1000 Iu)] 25 mcg PO DAILY #30 tablet 05/26/20 [Rx] Loperamide [Imodium] 2 mg PO QID PRN #30 cap 05/26/20 [Rx] Rivaroxaban [Xarelto] 2.5 mg PO DAILY #28 tab 05/26/20 [Rx] Zinc Sulfate [Orazinc] 220 mg PO DAILY #30 cap 05/26/20 [Rx] dexAMETHasone [Hexadrol] 6 mg PO DAILY #20 tab 05/26/20 [Rx] Follow up Appointment(s)/Referral(s): Shayan Beltrán DO [Primary Care Provider] - 1-2 days Patient Instructions/Handouts: Coronavirus Disease 2019 (COVID-19)
== END 2020-05-26 13:18 | disposition home or self-care (01) | DRG 177 ==
LOC: EC 12:52 → 6NMEDSUR 14:54 → OBSVTOIN 05-24 10:23
PROVIDERS: ADMIT Hospitalist; ATTEND Hospitalist
DX: U07.1 COVID-19 (principal); J12.82 Pneumonia due to coronavirus disease 2019; E87.1 Hypo-osmolality and hyponatremia; M19.90 Unspecified osteoarthritis, unspecified site; E86.0 Dehydration; E86.1 Hypovolemia; R19.7 Diarrhea, unspecified; D72.810 Lymphocytopenia; Z96.641 Presence of right artificial hip joint; K75.9 Inflammatory liver disease, unspecified; K76.0 Fatty (change of) liver, not elsewhere classified; E88.09 Other disorders of plasma-protein metabolism, not elsewhere classified; F17.200 Nicotine dependence, unspecified, uncomplicated; Z90.49 Acquired absence of other specified parts of digestive tract
CPT/HCPCS: 36415; 71046; 71275; 74018; 80053; 81001; 82150; 82550; 82728; 83605; 83615; 83630; 83690; 83735; 84145; 85025; 85379; 86140; 87040; 87045; 87046; 87324; 87502; 87635; 93005

== ENCOUNTER → 2020-06-15 | Outpatient (CLI) | payer MEDICARE, OTHER ==
--- NOTE | 2020-06-16 09:30 | MR ---
EXAMINATION TYPE: MR lumbar spine wo con DATE OF EXAM: 06/15/2020 COMPARISON: None HISTORY: Lower back pain TECHNIQUE: Multiplanar, multisequence images of the lumbar spine were acquired. Findings: The lumbar vertebral segments are normal in both height and alignment and there is no fracture or sub luxation. There is marked degenerative disc disease at the L4-5 and L5-S1 level with marked disc space narrowin g, disc bulge, spondylosis and discogenic endplate changes. The disc spaces at the L1-2, L2-3 and L3- 4 levels are well-maintained in height. There is mild spondylosis indicating mild degenerative disc d isease at these levels. There is a small focal disc herniation at the L4-5 level in the left compromising the left lateral re cess. There is no spinal stenosis. There is moderate compromise of the L4-5 neural foramina on the left and at the L5-S1 neural foramina bilaterally. The paraspinal soft tissues are unremarkable. The conus medullaris and cauda equina appear normal. There is mild facet arthropathy throughout the lumbar region. IMPRESSION: 1. Marked degenerative disease at the L4-5 and L5-S1 levels. 2. Small focal herniation of the L4-5 disc on the left with compromise the left lateral recess and ne ural foramina. 3. Moderate narrowing of the L5-S1 neuroforamina bilaterally. 4. No spinal stenosis, lumbar spine fracture or malalignment.
== END | disposition home or self-care (01) ==
LOC: RADMRIMAIN 12:43
DX: M48.07 Spinal stenosis, lumbosacral region (principal); M51.37 Other intervertebral disc degeneration, lumbosacral region; M51.26 Other intervertebral disc displacement, lumbar region; M51.36 Other intervertebral disc degeneration, lumbar region
CPT/HCPCS: 72148

== ENCOUNTER 2024-05-24 13:35 | Day surgery (SDC) | payer OTHER ==
[~2024-05-24 13:35] MED LIST: ATROPINE SULFATE 0.4 MG/ML 1 ML VIAL IM ONE; LACTATED RINGERS 1,000 ML IV SCH; LIDOCAINE 1% (10MG/ML) FOR IV START INTRADERMA PRN
[2024-05-24] MEDS: IV FLUID CONTINUATION 1,000 ML IV ONE (13:57)
[2024-05-24 14:00] VITALS: TEMP 97
[2024-05-24] MEDS: LACTATED RINGERS 1,000 ML IV SCH (14:07)
[2024-05-24] MEDS ORDERED: PROPOFOL 10 MG/ML 20 ML VIAL IV ONE (14:28)
[2024-05-24] MEDS ORDERED: LIDOCAINE 1% INJ 10MG/ML (20 ML MDV) ONE (14:28)
[2024-05-24] MEDS: LIDOCAINE 2% INJ 20 MG/ML INTRATRACH ONE (14:37)
[2024-05-24 15:19] VITALS: RESP 18
[2024-05-24 15:47] VITALS: BP 109/73; PULSE 93
--- NOTE | 2024-05-24 20:44 | PCN ---
PROCEDURE NOTE PROCEDURES: Bronchoscopy, airway examination, therapeutic lavage, Bronchoalveolar lavage, brushes from lingula. PREOPERATIVE DIAGNOSIS: Ground-glass opacities in the lingula. POSTOPERATIVE DIAGNOSIS: Ground-glass opacities in the lingula. DINING SERVER: Dr. Swift. FIRST EMERGENCY REGISTRAR: Dr. Shala Hale. ANESTHESIA PROVIDED: Monitored anesthesia care. DESCRIPTION OF PROCEDURE: The patient's procedure was done in room #2 [facility]. There was informed consent and universal timeout. After the patient was adequately sedated and being monitored, the bronchoscope was inserted through the right nostril. It passed through the right nasopharynx into the oropharynx. The hypopharynx was identified and topicalized. The hypopharyngeal structures, including anterior commissure, true cords, false cords, piriform sinuses, right and left, vallecula, were all evaluated. They were all normal. There may have been either some secretions or yeast on the right vocal cord, and we will look at that on the way out. The trachea was topicalized. The glottic opening was topicalized. The bronchoscope was pushed through the trachea, which appeared relatively normal. Tracheal femi was sharp. There was [id number] tracheomalacia. After topicalization, the bronchoscope was taken through the airways. The right upper lobe and its 3 segments, the right middle lobe and its 2 segments, the right lower lobe and its 5 segments, the left upper lobe proper and its 2 segments, lingula and its 2 segments, and left lower lobe and its 4 segments, all had similar findings of diffuse airway erythema and hyperemia. The secretions were scant. There was no dominant mass or tumor. The bronchoscope was then wedged into the lingula. We did brushes initially of the lingula. Subsequent to that, we did a formal BAL of the lingula. 30 mL of fluid was recovered. The fluid was turbid and was sent for analysis. There was no immediate complication and the bronchoscope was withdrawn. The patient tolerated the procedure well without difficulty. MMODL / IJN: [id number] /
[2024-05-25 05:36] LABS: Appearance,BF Cloudy (Clear); RBC, Body Fluid 18 /UL (0-2000)
[2024-05-26 09:35] LABS: Nucleated Cells, Body Fluid 20 /UL
== END 2024-05-24 15:48 | disposition home or self-care (01) ==
LOC: ORWHC2ENDO 13:35
PROVIDERS: ATTEND Internal Medicine Critical Care Medicine
DX: R05.3 Chronic cough (principal); E78.2 Mixed hyperlipidemia; J45.909 Unspecified asthma, uncomplicated; Z87.891 Personal history of nicotine dependence
CPT/HCPCS: 89050; 87070; 87205; 87116; 87102; 87206; 31623; 31624; J2003 ×2; J2704; 88104; 88108; 88305